=== PATIENT | male | born 1985 | race Caucasian/White ===

== ENCOUNTER 2021-12-12 07:30 | Emergency (ER) | payer BC ==
[2021-12-12] MEDS ORDERED: Ondansetron 4 MG/2 ML SDV IVPUSH ONE (07:39)
[2021-12-12] MEDS ORDERED: Sodium Chloride 0.9% 1,000 ML IV ONE ×2 (07:39→08:47)
[2021-12-12] MEDS ORDERED: Ketorolac 30 MG/ML SDV IVPUSH ONE (07:40)
[2021-12-12 08:17] LABS: CARBON DIOXIDE,CO2 25.6 mmol/L (21.0-32.0); POTASSIUM,K 4.1 mmol/L (3.5-5.1)
[2021-12-12] MEDS ORDERED: Tamsulosin 0.4 MG Cap.ER PO ONE (08:47)
== END 2021-12-12 09:58 | disposition home or self-care (01) ==
LOC: MW.ED 07:30
DX: N20.1 Calculus of ureter (principal)
CPT/HCPCS: 36415; 74176; 80053; 82365; 83690; 85025; 96361; 96374; 96375; 99284; A9270; J1885; J2405; J7030